=== PATIENT | female | born 1985 | race Caucasian/White ===

== ENCOUNTER 2017-10-04 12:12 | Emergency (ER) | payer BC ==
[2017-10-04 12:30] VITALS: BP 124/67; PULSE 76; RESP 16; TEMP 98.1; O2SAT 100
[2017-10-04 13:00] LABS: BACTERIA, URINE FEW /hpf; BILIRUBIN, URINE NEG (NEG); BLOOD, URINE TRACE (NEG); GLUCOSE,URINE NEG (NEG); KETONE, URINE NEG (NEG); NITRITE,URINE NEG (NEG); PH, URINE 6.5 (5.0-8.5); SQUAMOUS EPITHELIAL CELL URINE 8 /hpf (0-5); URINE COLOR LIGHT-YELLOW (YELLW/STRAW); URINE LEUKOCYTE ESTERASE NEG (NEG)
--- NOTE | 2017-10-04 14:04 | PD ---
HPI Chief Complaint: Complaint Time Seen by Provider: 13:52 Travel History International Travel<30 days: No Contact w/Intl Traveler<30days: No Traveled to known affect area: No History of Present Illness HPI Patient is a 32-year-old female presented to the emergency department for evaluation of a possible urinary tract infection. Patient states she was at her primary doctor's office a few days ago, a was confirmed and they noticed blood in her urine. 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 Patient denies abdominal pain, vaginal discharge, vaginal bleeding, nausea, vomiting. Patient reports feeling well. PFSH Past Medical History Medical History: Denies Significant Hx ?: Social History Alcohol Use: No Tobacco Use: No Substance Use: No Allergies-Medications (Allergen,Severity, Reaction): Coded Allergies: No Known Allergies (Unverified , 10/04/17) Review of Systems Except as stated in HPI: all other systems reviewed are Neg Gastrointestinal: No: Nausea, Abdominal Pain Genitourinary: No: Dysuria, Hematuria, Pelvic Pain, Flank Pain, Discharge, Vaginal Bleeding Physical Exam Narrative GENERAL: Well-developed, well-nourished, alert female. Presenting in no acute distress. SKIN: Warm and dry. HEAD: Atraumatic. Normocephalic. EYES: Pupils equal and round. No scleral icterus. No injection or drainage. ENT: No nasal bleeding or discharge. Mucous membranes pink and moist. NECK: Trachea midline. No JVD. CARDIOVASCULAR: Regular rate and rhythm. RESPIRATORY: No accessory muscle use. Clear to auscultation. Breath sounds equal bilaterally. GASTROINTESTINAL: Abdomen soft, non-tender, nondistended. Hepatic and splenic margins not palpable. MUSCULOSKELETAL: Extremities without clubbing, cyanosis, or edema. No obvious deformities. NEUROLOGICAL: Awake and alert. No obvious cranial nerve deficits. Motor grossly within normal limits. Five out of 5 muscle strength in the arms and legs. Normal speech. PSYCHIATRIC: Appropriate mood and affect; insight and judgment normal. Data Data Last Documented VS Vital Signs Date Time Temp Pulse Resp B/P (MAP) Pulse Ox O2 Delivery O2 Flow Rate FiO2 10/04/17 12:30 98.1 76 16 124/67 (86) 100 Orders Orders Urinalysis - C+S If Indicated (10/04/17 12:33) Ed Urine Pregnancytest Poc (10/04/17 12:33) Labs Laboratory Tests Test 10/04/17 12:38 Urine Color LIGHT-YELLOW Urine Turbidity CLEAR Urine pH 6.5 Urine Specific [place] 1.006 Urine Protein NEG mg/dL Urine Glucose (UA) NEG mg/dL Urine Ketones NEG mg/dL Urine Occult Blood TRACE Urine Nitrite NEG Urine Bilirubin NEG Urine Urobilinogen LESS THAN 2.0 MG/DL Urine Leukocyte Esterase NEG Urine RBC 2 /hpf Urine WBC 1 /hpf Urine Squamous Epithelial Cells 8 /hpf Urine Bacteria FEW /hpf Microscopic Urinalysis Comment CULT NOT INDICATED MDM Medical Decision Making Medical Screen Exam Complete: Yes Emergency Medical Condition: Yes Interpretation(s) Vital Signs Date Time Temp Pulse Resp B/P (MAP) Pulse Ox O2 Delivery O2 Flow Rate FiO2 10/04/17 12:30 98.1 76 16 124/67 (86) 100 Differential Diagnosis UTI versus normal exam versus other Narrative Course Patient is well-appearing 32-year-old female presenting to emergency department for evaluation on the advice of her primary doctor for possible UTI. Patient is asymptomatic. Her vital signs are stable. Urinalysis shows trace occult blood, no red blood cells. Discussed with my attending physician. Patient will be discharged home. She is encouraged to return immediately for any new or worsening symptoms, vaginal bleeding, abdominal cramping. She is encouraged to keep her appointment with her commercial sewing instructor in 2 weeks. She verbalized understanding of instructions. Patient stable for discharge. Plan of care was discussed with my attending physician. Diagnosis Primary Impression: Low back pain Qualified Codes: M54.5 - Low back pain Referrals: Manager [facility] Primary Care Physician Patient Instructions: Acute Low Back Pain (ED), General Instructions Additional Instructions: Follow-up with your primary doctor Follow-up with your commercial sewing instructor Return to emergency department for any new or worsening symptoms You may take acetaminophen as needed and as directed for pain Med/Other Pt SpecificInfo: No Change to Meds Disposition: 01 DISCHARGE HOME Condition: Stable KevinEdith Oct 04, 2017 14:04
== END 2017-10-04 14:27 | disposition home or self-care (01) ==
LOC: NEPD 12:12
DX: M54.5 Low back pain (principal)
CPT/HCPCS: 81001; 84703; 99283